=== PATIENT | female | born 1985 ===

== ENCOUNTER 2018-04-27 19:06 | Emergency (ER) | payer OTHER ==
--- NOTE | 2018-04-28 03:21 | ED ---
Throat Pain/Nasal Congestion - HPI Summary HPI Summary: This is scribe Joseph Alaniz documenting for attending Dr. Fortino Mireles MD. A 33 y/o female present to ED s/p nose injury. 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 She stated that after she rammed herself into the door she was shocked at the beginning and didn't notice anything odd, however when she went back to her lab she saw that her hands were bloody. Pt denies any LOC, however has nausea. Currently, the patient has no pain as since she has been ED it has subsided. She noted when she first arrived here she was in serious pain in her eyes and head, but not nose. She noted that the nose was asymmetric at the beginning but now is symmetric. No medications. PhD student at [employer]. - History of Current Complaint Chief Complaint: EDHeadInjury Time Seen by Provider: 04/28/18 03:00 Hx Obtained From: Patient Onset/Duration: Sudden Onset, Resolved - Allergies/Home Medications Allergies/Adverse Reactions: Allergies Allergy/AdvReac Type Severity Reaction Status Date / Time No Known Allergies Allergy Verified 04/27/18 19:18 PMH/Surg Hx/FS Hx/Imm Hx Cardiovascular History: Denies: Hx Hypertension Respiratory History: Denies: Hx Asthma Infectious Disease History: No Infectious Disease History: Denies: Traveled Outside the in Last 30 Days - Family History Known Family History: Negative: Hypertension - Social History Occupation: Student Smoking Status (MU): Never Smoked Tobacco Review of Systems Negative: Fever Positive: Nausea Positive: Other - POSITIVE: Swelling on nose All Other Systems Reviewed And Are Negative: Yes Physical Exam - Summary Physical Exam Summary: Appearance: Well-appearing, Well-nourished, lying in bed comfortably Skin: Warm, dry, no obvious rash. Superficial swelling on nose. Eyes: sclera anicteric, no conjunctival pallor ENT: mucous membranes moist, pharynx appears normal Neck: Supple, nontender Respiratory: Clear to auscultation, no signs of respiratory distress Cardiovascular: Normal S1, S2. No murmurs. Normal distal pulses in tibial and radial bilaterally. Abdomen: Soft, nontender, normal active bowel sounds present Musculoskeletal: Normal, Strength/ROM Intact Neurological: A&Ox3, awake and alert, mentation is normal, speech is fluent and appropriate Psychiatric: affect is normal, does not appear anxious or depressed Triage Information Reviewed: Yes Vital Signs On Initial Exam: Initial Vitals Temp Pulse Resp BP Pulse Ox 99.3 F 77 16 128/76 100 04/27/18 19:17 04/27/18 19:17 04/27/18 19:17 04/27/18 19:17 04/27/18 19:17 Vital Signs Reviewed: Yes Diagnostics - Vital Signs Vital Signs Temp Pulse Resp BP Pulse Ox 04/28/18 01:25 98.5 F 76 18 105/76 04/27/18 23:26 99.1 F 86 16 102/85 99 04/27/18 22:02 99.3 F 77 16 128/76 100 04/27/18 19:17 99.3 F 77 16 128/76 100 - Laboratory Lab Statement: Any lab studies that have been ordered have been reviewed, and results considered in the medical decision making process. EENT Course/Dx - Diagnoses Provider Diagnoses: Fractured nose Discharge - Sign-Out/Discharge Documenting (check all that apply): Patient Departure - DISCHARGE - Discharge Plan Condition: Good Disposition: HOME Patient Education Materials: Nasal Fracture (ED) Referrals: No Primary Care Phys,NOPCP [Primary Care Provider] - Dre Rodriguez MD [Medical Doctor] - 2 Days (FOLLOW UP WITH PCP IN 2-3 DAYS.) Additional Instructions: Over the next few days over the next few days as the swelling comes down he will be able to see if the nose is deviated to one side or the other. If it is , the ENT doctor biomedical electronics technician should be able to help you get that fixed. RETURN TO ED FOR NEW OR WORSENING SYMPTOMS. - Billing Disposition and Condition Condition: GOOD Disposition: Home
[2018-04-28 04:36] VITALS: BP 113/86
== END 2018-04-28 04:36 | disposition home or self-care (01) ==
LOC: ED 19:06
DX: S02.2XXA Fracture of nasal bones, initial encounter for closed fracture (principal); W22.09XA Striking against other stationary object, initial encounter; Y93.89 Activity, other specified; Y92.89 Other specified places as the place of occurrence of the external cause; Y99.0 Civilian activity done for income or pay; R11.0 Nausea
CPT/HCPCS: 99282